=== PATIENT | male | born 1950 | race Caucasian/White ===

== ENCOUNTER 2019-05-25 08:53 | Emergency (ER) | payer MEDICARE ==
[~2019-05-25] VITALS: Ht 175.3 cm; Wt 133.8 kg
[2019-05-25 10:12] LABS: BASOPHILS # (AUTO) 0.1 (0.0-0.1); BASOPHILS % 0.8 % (0.0-1.0); EOSINOPHILS # (AUTO) 0.3 (0.0-0.4); HEMATOCRIT 41.4 % (38.2-49.6); HEMOGLOBIN 13.1 g/dL (14.0-18.0); LYMPHOCYTES % 22.3 % (18.0-39.1); MEAN CORPUSCULAR HEMOGLOBIN 28.1 pg (28-32); MEAN CORPUSCULAR HGB CONC 31.6 g/dL (31-35); MEAN CORPUSCULAR VOLUME 88.8 fL (81-99); MONOCYTES # (AUTO) 0.6 (0.2-0.8); MONOCYTES % 6.8 % (4.4-11.3); NEUTROPHILS % 66.5 % (38.7-80.0); PLATELET COUNT 257 x10e3/uL (140-360); RED BLOOD COUNT 4.66 x10e6/uL (4.3-5.7); RED CELL DISTRIBUTION WIDTH 14.7 % (11.7-14.4)
[2019-05-25 10:29] LABS: ALANINE AMINOTRANSFERASE 33 IU/L (0-55); ALBUMIN 3.9 g/dL (3.5-5.0); ALBUMIN/GLOBULIN RATIO 1.1 (0.8-2.0); ALKALINE PHOSPHATASE 53 IU/L (40-150); ANION GAP 14.1 mmol/L (8-16); BLOOD UREA NITROGEN 18 mg/dL (7-26); BUN/CREATININE RATIO 11 (6-25); CARBON DIOXIDE 26 mmol/L (22-29); CHLORIDE 104 mmol/L (98-107); CREATININE, SERUM 1.59 mg/dL (0.72-1.25); EST GLOMERULAR FILTRATION RATE 43 ML/MIN (60-); GLUCOSE 145 mg/dL (74-118); POTASSIUM 4.1 mmol/L (3.5-5.1); SODIUM 140 mmol/L (136-145)
[2019-05-25 11:05] LABS: SALICYLATE < 5.0 mg/dL (0-30)
--- NOTE | 2019-05-25 11:22 | NUR ---
CALLED [facility], THEY ARE NOT IN NETWORK, CALLED [facility]RISTOPHER DAISY FAXED CLINICALS TO [facility] [phone], SHE WILL NOTIFY ME IF ACCEPTED THEN MOT CAN BE COMPLETED
[2019-05-25 12:16] LABS: ACETAMINOPHEN < 3 ug/mL (10-30)
--- NOTE | 2019-05-25 14:12 | NUR ---
sitter in room. waiting for ems
--- NOTE | 2019-05-25 14:37 | NUR ---
Erna HERE TO TX PT TO [facility]. ALL PAPER WITH EMS CREW--ANDREW EMT
== END 2019-05-25 14:40 ==
LOC: ER 08:57
DX: R45.851 Suicidal ideations (principal); F32.1 Major depressive disorder, single episode, moderate; I12.9 Hypertensive chronic kidney disease with stage 1 through stage 4 chronic kidney disease, or unspecified chronic kidney disease; E11.22 Type 2 diabetes mellitus with diabetic chronic kidney disease; N18.9 Chronic kidney disease, unspecified
CPT/HCPCS: 36415; 80053; 80329; 85025; 93005; 99285

== ENCOUNTER 2022-08-20 14:55 | Emergency (ER) | payer MEDICARE ==
[~2022-08-20] VITALS: Ht 177.8 cm; Wt 130.2 kg
[2022-08-20] MEDS ORDERED: KETOROLAC TROMETHAMINE 30 MG/ML VIAL IM PRN (16:00)
[2022-08-20] MEDS ORDERED: KETOROLAC TROMETHAMINE 60 MG/2 ML VIAL ONE (16:24)
[2022-08-20] MEDS ORDERED: KETOROLAC TROME10 MG PO (16:34)
[2022-08-20] MEDS ORDERED: BACLOFEN10 MG PO (16:35)
[2022-08-20] MEDS ORDERED: NOVOLOG100 UNIT/1 SC (17:11)
[2022-08-20] MEDS ORDERED: METFORMIN HCL500 MG PO (17:11)
[2022-08-20] MEDS ORDERED: NOVOLIN R100 UNIT/1 (17:11)
[2022-08-20] MEDS ORDERED: ASPIRIN EC81 MG PO (17:11)
== END 2022-08-20 16:44 | disposition home or self-care (01) ==
LOC: FSED 15:19
DX: M54.32 Sciatica, left side (principal); I12.9 Hypertensive chronic kidney disease with stage 1 through stage 4 chronic kidney disease, or unspecified chronic kidney disease; E11.22 Type 2 diabetes mellitus with diabetic chronic kidney disease; N18.9 Chronic kidney disease, unspecified
CPT/HCPCS: 96372; 99283; J1885